=== PATIENT | female | born 1980 | race Caucasian/White ===

== ENCOUNTER 2017-05-19 11:53 | Emergency (ER) | payer SELFPAY ==
[~2017-05-19] VITALS: Wt 80.0 kg
== END 2017-05-19 15:14 | disposition left against medical advice (07) ==
LOC: FTE 11:53
DX: Z53.21 Procedure and treatment not carried out due to patient leaving prior to being seen by health care provider (principal)

== ENCOUNTER 2017-05-22 13:22 | Emergency (ER) | payer BC, OTHER ==
[~2017-05-22] VITALS: Ht 157.5 cm; Wt 78.3 kg
[2017-05-22 13:25] VITALS: Ht 157.5 cm; Wt 78.3 kg
[2017-05-22] MEDS ORDERED: HYDROCODONE/APAP (5/325) TAB PO ONE (15:00)
[2017-05-22] MEDS ORDERED: IBUPROFEN 200 MG TAB PO ONE (15:00)
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
[2017-05-22] MEDS ORDERED: IBUP-1542 PO (15:34)
[2017-05-22] MEDS ORDERED: ACET325T33 PO (15:34)
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
== END 2017-05-22 16:45 | disposition home or self-care (01) ==
LOC: FTE 13:22
DX: S82.51XA Displaced fracture of medial malleolus of right tibia, initial encounter for closed fracture (principal); V49.40XA Driver injured in collision with unspecified motor vehicles in traffic accident, initial encounter